=== PATIENT | male | born 1965 | race Caucasian/White ===

== ENCOUNTER 2021-11-03 21:31 | Emergency (ER) | payer OTHER ==
[~2021-11-03] VITALS: Ht 188 cm; Wt 100.0 kg
[2021-11-03 21:38] VITALS: BP 127/73
[2021-11-03] MEDS ORDERED: ibuprofen tablet 400 MG TABLET PO ONE (23:10)
[2021-11-03] MEDS ORDERED: HYDROcodone/acetaminophen 5mg/325mg tablet PO ONE (23:10)
[2021-11-03] MEDS ORDERED: ondansetron 4mg rapidly disintigrating tab PO ONE (23:10)
[2021-11-03] MEDS ORDERED: HYDR-3965 PO (23:12)
== END 2021-11-03 23:45 | disposition home or self-care (01) ==
LOC: ER 21:32
DX: S82.491A Other fracture of shaft of right fibula, initial encounter for closed fracture (principal); M79.671 Pain in right foot; Z79.899 Other long term (current) drug therapy; X58.XXXA Exposure to other specified factors, initial encounter; Y93.89 Activity, other specified; Y92.89 Other specified places as the place of occurrence of the external cause; Y99.8 Other external cause status
CPT/HCPCS: 29515; 73610; 99283